=== PATIENT | male | born 1970 | race Caucasian/White ===

== ENCOUNTER 2018-10-23 14:56 | Inpatient (IN) | payer SELFPAY ==
[~2018-10-23] VITALS: Ht 172.7 cm; Wt 77.2 kg
[2018-10-23 15:53] LABS: BASOPHILS % 2.5 % (0.0-2.0); HEMOGLOBIN. 15.8 g/dL (14.0-18.0); LYMPHOCYTES % 22.7 % (20.0-50.0); MEAN CORPUSCULAR HEMOGLOBIN 33.4 pg (28.0-32.0); MEAN CORPUSCULAR VOLUME 97.2 fL (80.0-94.0); MEAN PLATELET VOLUME 8.6 fl (7.4-10.4); MONOCYTES % 14.8 % (2.0-8.0); PLATELET 286 x1000/uL (130-400); PROTHROMBIN TIME 10.1 sec (9.1-11.1); RED BLOOD CELL COUNT 4.73 mill/uL (4.7-6.1); RED CELL DISTRIBUTION WIDTH 12.6 % (11.6-14.6)
[2018-10-23 15:56] LABS: CHLORIDE 102 mEq/L (98-107)
[2018-10-23] MEDS ORDERED: MORPHINE SULFATE 4 MG/ML CPJ (NOT FOR IM USE) IV ONE ×2 (16:00→18:30)
[2018-10-23] MEDS ORDERED: PIPERACILLIN/TAZ 3.375G PREMIX 50 ML IV NR (17:45)
[2018-10-23] MEDS ORDERED: PIPERACILLIN/TAZOBACTAM 3.375GM/50ML PREMIX IV ONE (17:45)
[2018-10-23] MEDS ORDERED: ONDANSETRON HCL 4MG/2ML INJ IV ONE (18:30)
[2018-10-23] MEDS ORDERED: SODIUM CHLORIDE 0.45% 1,000 ML IV SCH (18:30)
[2018-10-23] MEDS ORDERED: DEXT 5%/0.45% NACL 1000ML 1,000 ML IV SCH ×2 (18:30→18:45)
[2018-10-23] MEDS ORDERED: MORPHINE SULFATE 2 MG/ML CPJ (NOT FOR IM USE) IV PRN (18:30)
[2018-10-23] MEDS ORDERED: SKIN ADHESIVE 0.7 GM EA TOP ONE ×2 (18:36→18:37)
[2018-10-23] MEDS ORDERED: BUPIVACAINE HCL 0.5% (5MG/ML) 50ML ONE (18:36)
[2018-10-23] MEDS ORDERED: MIDAZOLAM HCL 2 MG/2 ML VIAL ONE (18:50)
[2018-10-23] MEDS ORDERED: NEOSTIGMINE METHYLSULFATE 1MG/ML 10 ML VIAL ONE (18:50)
[2018-10-23] MEDS ORDERED: FENTANYL CITRATE/PF 50MCG/ML 2ML VIAL ONE ×2 (18:50→19:52)
[2018-10-23] MEDS ORDERED: GLYCOPYRROLATE 0.2 MG/ML 2ML VIAL ONE (18:50)
[2018-10-23] MEDS ORDERED: ROCURONIUM BROMIDE 10MG/ML VIAL 5ML IV ONE (18:50)
[2018-10-23] MEDS ORDERED: PROPOFOL 200MG/20ML VIAL IV ONE (18:50)
[2018-10-23] MEDS ORDERED: ONDANSETRON HCL 4MG/2ML INJ ONE (18:51)
[2018-10-23] MEDS ORDERED: METOCLOPRAMIDE HCL 10MG/2ML VIAL ONE (18:51)
[2018-10-23] MEDS ORDERED: DEXAMETHASONE 4MG/ML 1ML VIAL ONE (18:51)
[2018-10-23] MEDS ORDERED: SODIUM CHLORIDE 0.9% 10ML VIAL ONE (18:51)
[2018-10-23] MEDS ORDERED: PHENYLEPHRINE HCL 10 MG/ML 1ML (IV VIAL) IV ONE (18:51)
[2018-10-23] MEDS ORDERED: SUCCINYLCHOLINE CHLORIDE 200MG/10ML IV ONE (18:51)
[2018-10-23] MEDS ORDERED: EPHEDRINE SULFATE 50MG/ML VIAL ONE (18:51)
[2018-10-23] MEDS ORDERED: CEFAZOLIN SODIUM 1000MG/VIAL ONE (18:51)
[2018-10-23] MEDS ORDERED: LIDOCAINE HCL/PF 1% 10 MG/ML 5ML VIAL ONE (18:51)
[2018-10-23] MEDS ORDERED: ONDANSETRON HCL 4MG/2ML INJ IV PRN ×2 (19:45→20:15)
[2018-10-23] MEDS ORDERED: MORPHINE SULFATE 4 MG/ML CPJ (NOT FOR IM USE) IV PRN (20:15)
[2018-10-23] MEDS ORDERED: MEPERIDINE HCL/PF 25MG/ML CPJ IV PRN (20:15)
[2018-10-23] MEDS ORDERED: HYDROMORPHONE HCL/PF 2MG/ML CPJ IV PRN (20:15)
[2018-10-23] MEDS ORDERED: SODIUM CHLORIDE 0.9% 1,000 ML IV ONE (20:30)
[2018-10-23] MEDS: MEPERIDINE HCL/PF 25MG/ML CPJ IV PRN ×2 (20:38→21:05)
[2018-10-23 21:50] VITALS: BP 149/89
[2018-10-23 23:58] VITALS: BP 149/89
[2018-10-24] VITALS: BP 147/91
[2018-10-24] MEDS: METRONIDAZOLE 500 MG PREMIX 100 ML IV SCH ×3 (01:16→18:06)
[2018-10-24] MEDS: DEXT 5%/0.45% NACL KCL 20MEQ/L 1,000 ML IV SCH ×3 (01:16→17:00)
[2018-10-24] MEDS ORDERED: METRONIDAZOLE 500 MG PREMIX 100 ML IV SCH (02:00)
[2018-10-24] MEDS: MORPHINE SULFATE 4 MG/ML CPJ (NOT FOR IM USE) IV PRN ×5 (02:12→21:25)
[2018-10-24] MEDS ORDERED: CEFAZOLIN 1000MG PREMIX 50 ML IV SCH (03:00)
[2018-10-24 04:00] VITALS: BP 143/87
[2018-10-24 06:50] LABS: HEMATOCRIT. 48.5 % (42.0-52.0); HEMOGLOBIN. 16.1 g/dL (14.0-18.0); MEAN CORPUSCULAR HEMOGLOBIN 32.8 pg (28.0-32.0); MEAN PLATELET VOLUME 9.3 fl (7.4-10.4); PLATELET 333 x1000/uL (130-400); RED CELL DISTRIBUTION WIDTH 12.4 % (11.6-14.6)
[2018-10-24 07:16] LABS: CHLORIDE 100 mEq/L (98-107)
[2018-10-24 08:00] VITALS: BP 130/81
[2018-10-24] MEDS ORDERED: PNEUMOCOCCAL 23-VAL P-SAC VAC 0.5 ML IM ONE (08:00)
[2018-10-24] MEDS: ENOXAPARIN 40MG/0.4ML SYR SUBCUT SCH (08:27)
[2018-10-24] MEDS ORDERED: INFLUENZA VIRUS VACCINE(AFLURIA) 0.5ML SYR IM ONE (10:00)
[2018-10-24] MEDS: ACETAMINOPHEN 650MG SUPP PR PRN (10:01)
[2018-10-24 11:41] VITALS: BP 129/78
[2018-10-24] MEDS: CEFAZOLIN 1000MG PREMIX 50 ML IV SCH ×2 (14:20→23:06)
[2018-10-24 16:45] LABS: PLATELET ESTIMATE NORMAL
[2018-10-24 20:00] VITALS: BP 132/77
[2018-10-24] MEDS: ZOLPIDEM TARTRATE 5MG TABLET PO PRN (21:23)
[2018-10-24] MEDS: ONDANSETRON HCL 4MG/2ML INJ IV PRN (21:24)
[2018-10-25] VITALS: BP 134/81
[2018-10-25 04:00] VITALS: BP 135/84
[2018-10-25] MEDS: ONDANSETRON HCL 4MG/2ML INJ IV PRN (04:15)
[2018-10-25] MEDS: MORPHINE SULFATE 4 MG/ML CPJ (NOT FOR IM USE) IV PRN ×4 (04:16→20:40)
[2018-10-25 06:49] LABS: CHLORIDE 101 mEq/L (98-107)
[2018-10-25 07:01] LABS: BASOPHILS % 0.5 % (0.0-2.0); EOSINOPHILS % 0.1 % (0.0-5.0); HEMATOCRIT. 40.8 % (42.0-52.0); HEMOGLOBIN. 14.1 g/dL (14.0-18.0); LYMPHOCYTES % 14.5 % (20.0-50.0); MEAN CORPUSCULAR HEMOGLOBIN 33.5 pg (28.0-32.0); MEAN CORPUSCULAR VOLUME 96.9 fL (80.0-94.0); MEAN PLATELET VOLUME 9.3 fl (7.4-10.4); MONOCYTES % 7.4 % (2.0-8.0); NEUTROPHILS % 77.5 % (40.0-76.0); PLATELET 260 x1000/uL (130-400); RED BLOOD CELL COUNT 4.21 mill/uL (4.7-6.1); RED CELL DISTRIBUTION WIDTH 12.3 % (11.6-14.6)
[2018-10-25 08:00] VITALS: BP 119/81
[2018-10-25] MEDS: ACETAMINOPHEN 650MG SUPP PR PRN (08:43)
[2018-10-25] MEDS: ENOXAPARIN 40MG/0.4ML SYR SUBCUT SCH (08:44)
[2018-10-25 12:00] VITALS: BP 123/70
[2018-10-25 16:00] VITALS: BP 118/71
[2018-10-25 20:00] VITALS: BP 137/84
[2018-10-25] MEDS: OMEPRAZOLE 20MG CAPSULE EXTENDED RELEASE PO SCH (20:38)
[2018-10-25] MEDS: DEXT 5%/0.45% NACL KCL 20MEQ/L 1,000 ML IV SCH (20:46)
[2018-10-26] VITALS: BP 122/76
[2018-10-26] MEDS: MORPHINE SULFATE 4 MG/ML CPJ (NOT FOR IM USE) IV PRN ×6 (00:26→19:55)
[2018-10-26 06:55] LABS: EOSINOPHILS % 0.5 % (0.0-5.0); HEMATOCRIT. 40.2 % (42.0-52.0); HEMOGLOBIN. 13.6 g/dL (14.0-18.0); LYMPHOCYTES % 12.2 % (20.0-50.0); MEAN CORPUSCULAR HEMOGLOBIN 32.8 pg (28.0-32.0); MEAN CORPUSCULAR VOLUME 96.9 fL (80.0-94.0); MEAN PLATELET VOLUME 9.4 fl (7.4-10.4); MONOCYTES % 8.1 % (2.0-8.0); NEUTROPHILS % 78.2 % (40.0-76.0); PLATELET 257 x1000/uL (130-400); RED BLOOD CELL COUNT 4.15 mill/uL (4.7-6.1); RED CELL DISTRIBUTION WIDTH 12.2 % (11.6-14.6)
[2018-10-26] MEDS: OMEPRAZOLE 20MG CAPSULE EXTENDED RELEASE PO SCH ×2 (07:01→08:34)
[2018-10-26 07:03] LABS: CHLORIDE 98 mEq/L (98-107)
[2018-10-26] MEDS: ENOXAPARIN 40MG/0.4ML SYR SUBCUT SCH (08:34)
[2018-10-26] MEDS: DEXT 5%/0.45% NACL KCL 20MEQ/L 1,000 ML IV SCH ×2 (09:36→13:00)
[2018-10-26] MEDS ORDERED: POTASSIUM CHLORIDE 20MEQ TABLET SR PO ONE (09:45)
[2018-10-26] MEDS: DOCUSATE SODIUM 100MG CAPSULE PO SCH (16:35)
[2018-10-26 20:00] VITALS: BP 137/80
[2018-10-27] VITALS: BP 110/66
[2018-10-27] MEDS: HYDROCODONE/ACETAMINOPHEN 5/325MG TABLET PO PRN ×4 (00:14→14:48)
[2018-10-27] MEDS: ZOLPIDEM TARTRATE 5MG TABLET PO PRN ×2 (00:14→21:27)
[2018-10-27 04:00] VITALS: BP 106/65
[2018-10-27] MEDS: DEXT 5%/0.45% NACL KCL 20MEQ/L 1,000 ML IV SCH ×3 (06:39→17:28)
[2018-10-27 07:39] LABS: CHLORIDE 102 mEq/L (98-107)
[2018-10-27 07:41] LABS: BASOPHILS % 0.8 % (0.0-2.0); EOSINOPHILS % 2.7 % (0.0-5.0); HEMATOCRIT. 42.2 % (42.0-52.0); HEMOGLOBIN. 14.5 g/dL (14.0-18.0); LYMPHOCYTES % 16.3 % (20.0-50.0); MEAN CORPUSCULAR HEMOGLOBIN 33.4 pg (28.0-32.0); MEAN CORPUSCULAR VOLUME 97.1 fL (80.0-94.0); MONOCYTES % 9.4 % (2.0-8.0); NEUTROPHILS % 70.8 % (40.0-76.0); PLATELET 283 x1000/uL (130-400); RED BLOOD CELL COUNT 4.34 mill/uL (4.7-6.1)
[2018-10-27] MEDS: DOCUSATE SODIUM 100MG CAPSULE PO SCH ×2 (08:43→17:28)
[2018-10-27] MEDS: ENOXAPARIN 40MG/0.4ML SYR SUBCUT SCH (08:44)
[2018-10-27] MEDS: MORPHINE SULFATE 4 MG/ML CPJ (NOT FOR IM USE) IV PRN ×2 (15:38→21:28)
[2018-10-27 20:00] VITALS: BP 137/75
[2018-10-27] MEDS: ACETAMINOPHEN 650MG SUPP PR PRN (21:39)
[2018-10-28] MEDS: MORPHINE SULFATE 4 MG/ML CPJ (NOT FOR IM USE) IV PRN ×4 (03:46→18:10)
[2018-10-28 04:00] VITALS: BP 116/68
[2018-10-28] MEDS: DEXT 5%/0.45% NACL KCL 20MEQ/L 1,000 ML IV SCH ×2 (05:20→15:00)
[2018-10-28 08:00] LABS: EOSINOPHILS % 4.2 % (0.0-5.0); HEMATOCRIT. 40.4 % (42.0-52.0); HEMOGLOBIN. 13.9 g/dL (14.0-18.0); LYMPHOCYTES % 17.9 % (20.0-50.0); MEAN CORPUSCULAR HEMOGLOBIN 33.1 pg (28.0-32.0); MEAN CORPUSCULAR VOLUME 96.5 fL (80.0-94.0); MEAN PLATELET VOLUME 9.2 fl (7.4-10.4); MONOCYTES % 11.8 % (2.0-8.0); NEUTROPHILS % 65.1 % (40.0-76.0); PLATELET 324 x1000/uL (130-400); RED BLOOD CELL COUNT 4.19 mill/uL (4.7-6.1); RED CELL DISTRIBUTION WIDTH 12.3 % (11.6-14.6)
[2018-10-28 08:30] VITALS: BP 127/74
[2018-10-28 08:32] LABS: CHLORIDE 102 mEq/L (98-107)
[2018-10-28] MEDS: DOCUSATE SODIUM 100MG CAPSULE PO SCH ×2 (09:37→18:03)
[2018-10-28] MEDS: OMEPRAZOLE 20MG CAPSULE EXTENDED RELEASE PO SCH (09:37)
[2018-10-28] MEDS: ENOXAPARIN 40MG/0.4ML SYR SUBCUT SCH (09:38)
[2018-10-28 12:00] VITALS: BP 117/73
[2018-10-28 20:00] VITALS: BP 130/80
[2018-10-28] MEDS: ZOLPIDEM TARTRATE 5MG TABLET PO PRN (20:35)
[2018-10-28] MEDS: HYDROCODONE/ACETAMINOPHEN 5/325MG TABLET PO PRN (20:36)
[2018-10-29] VITALS: BP 131/73
[2018-10-29] MEDS: DEXT 5%/0.45% NACL KCL 20MEQ/L 1,000 ML IV SCH (00:58)
[2018-10-29] MEDS: HYDROCODONE/ACETAMINOPHEN 5/325MG TABLET PO PRN ×2 (00:58→07:46)
[2018-10-29 04:00] VITALS: BP 125/75
[2018-10-29] MEDS: OMEPRAZOLE 20MG CAPSULE EXTENDED RELEASE PO SCH (07:46)
[2018-10-29 08:00] VITALS: BP 111/73
[2018-10-29] MEDS: ENOXAPARIN 40MG/0.4ML SYR SUBCUT SCH (08:18)
[2018-10-29] MEDS: DOCUSATE SODIUM 100MG CAPSULE PO SCH (08:18)
[2018-10-29 10:33] VITALS: BP 111/73
== END 2018-10-29 11:00 | disposition home or self-care (01) | DRG 710 ==
LOC: ER 14:56 → EDBD 17:57 → 6EST 17:57 → ER 18:21 → CANBEDREQ 20:18
PROVIDERS: ADMIT Internal Medicine; ATTEND Internal Medicine
PROC: 0DTJ4ZZ Resection of Appendix, Percutaneous Endoscopic Approach (ICD-10-PCS; principal; 2018-10-23)
DX: A41.9 Sepsis, unspecified organism (principal); K35.32 Acute appendicitis with perforation, localized peritonitis, and gangrene, without abscess; F10.10 Alcohol abuse, uncomplicated; K59.00 Constipation, unspecified; Z71.41 Alcohol abuse counseling and surveillance of alcoholic
CPT/HCPCS: 36415; 74176; 80048; 88304; 90686; 90732; 96374; 99291; J0330; J0690; J1100; J1650; J2175; J2250; J2270; J2370; J2405; J2704; J2710; J2765; J3010; J3490

== ENCOUNTER 2020-04-03 14:39 | Emergency (ER) | payer SELFPAY ==
[~2020-04-03] VITALS: Ht 167.6 cm; Wt 71.0 kg
[2020-04-03 14:44] VITALS: BP 162/84
== END 2020-04-03 16:00 | disposition home or self-care (01) ==
LOC: ER 14:39
DX: S81.041A Puncture wound with foreign body, right knee, initial encounter (principal); X58.XXXA Exposure to other specified factors, initial encounter; Y93.89 Activity, other specified; Y92.89 Other specified places as the place of occurrence of the external cause
CPT/HCPCS: 99282